=== PATIENT | male | born 1965 | race Caucasian/White ===

== ENCOUNTER 2022-05-11 12:08 | Outpatient (REF) | payer OTHER, SELFPAY ==
[2022-05-11 14:11] LABS: SARS PCR* Negative SARS-CoV-2 (Negative)
== END 2022-05-11 12:09 | disposition home or self-care (01) ==
LOC: NPINS 12:08
PROVIDERS: Visit Provider Surgery
DX: Z20.822 Contact with and (suspected) exposure to COVID-19 (principal)
CPT/HCPCS: 87635

== ENCOUNTER 2022-05-14 06:23 | Day surgery (SDC) | payer OTHER, SELFPAY ==
[2022-05-14] VITALS (13 sets, daily range): BP systolic 94–127; BP diastolic 55–81; PULSE 59–94; RESP 18–20; TEMP 36.2–37.2; O2SAT 94–97; BMI 25.8
[2022-05-14] MEDS: LACTATED RINGERS 1000 ML 1,000 ML 35 ML IV (06:30)
[2022-05-14] MEDS: LACTATED RINGERS 1000 ML 1,000 ML 100 ML IV (06:45)
[2022-05-14] MEDS: SODIUM CHLORIDE 0.9 % (FLUSH) 10 ML SYRINGE IVF (06:45)
[2022-05-14] MEDS: BUPIVACAINE 0.25% 30 ML INJECTION (07:32)
[2022-05-14] MEDS: CEFAZOLIN 2 GM INJ IVP (07:45)
--- NOTE | 2022-05-14 08:16 | SUR.OPER ---
Patient transfered from Same Day Surgery to OR 3. Patient was assisted to the OR bed. Patient was positioned per Dr. Green and BUSINESS OBJECTS. 2 warm blankets were placed on patient for warmth and comfort. Per Dr. Green order, Patient was straight cathed by sterile procedure. Glans of Penis was cleansed with Betadine swabs x3. Fay RN cathed with 50cc yellow urine output.
--- NOTE | 2022-05-14 08:49 | PM.GSPRC ---
Operative Note Date of procedure: 05/14/22 Type of Procedure: Laparoscopic inguinal hernia repair, right Procedure Description: After discussing the risks and benefits of the procedure, the patient signed informed consent.? The operative site was marked and the patient was brought to the operating room and placed on the operating table in supine position.? Care was taken to pad the patient's pressure points.?? The patient was then intubated by anesthesia.?? The operative site was then prepped and draped in the usual sterile fashion.? A time-out was then performed. A curvilinear incision was made below the umbilicus. Dissection was carried down to subcutaneous tissue until the anterior rectus fascia was encountered. This was incised off the midline. The rectus muscles were then retracted exposing the posterior fascia. A space maker port with a dissecting balloon was then introduced. The preperitoneal space was inflated under direct vision. The balloon was then removed and the preperitoneal space insufflated. A 10 mm 0 degree scope was then advanced and the area was surveyed for bleeding. Dissection began on the right side. Marcelo's ligament and the pubic bone was exposed medially. Following this dissection was carried out laterally. A direct defect was noted. The sac was dissected free from the cord structures using a combination of sharp and blunt dissection. A small vessel coming from the anterior abdominal wall was identified. A clip was applied proximal and distal and the small vessel ligated. Once the sac was completely reduced, the cord structures were dissected circumfrentially and a piece of Parietex mesh for the appropriate side was placed into the abdomen. This was positioned around the cord structures. A Tacker was used to attach the mesh medially at Marcelo's ligament. Once this was completed the preperitoneal space desufflated under direct vision. The ports were removed. The fascia from the infraumbilical port was closed with 0 Vicryl. The skin incisions were closed with absorbable subcuticular suture. Sterile dressings were then applied. The scrotum was examined to ensure that both testicles were down. Instrument sponge and needle counts were correct at the end of the case. ? The patient was then woken and transported to the recovery area in stable condition. ? The patient tolerated the procedure well. Findings: Direct hernia, right side Anesthesia: GETA Surgeon: Madina Green MD Estimated blood loss (mL): 2 Condition: stable Disposition: same day
--- NOTE | 2022-05-14 08:57 | W.ANESCHARGE ---
Anesthesia Charges Start Date/Time Anesthesia Start Date: 05/14/22 Anesthesia Start Time: 07:32 Stop Date/Time Anesthesia Stop Date: 05/14/22 Anesthesia Stop Time: 08:55 Summary Emergency: No
[2022-05-14] MEDS: fentaNYL 100 MCG/2 ML inj 50 MCG IVP ×2 (09:12→09:25)
--- NOTE | 2022-05-14 09:14 | W.ANESCHARGE ---
Anesthesia Charges Start Date/Time Anesthesia Start Date: 05/14/22 Anesthesia Start Time: 07:32 Stop Date/Time Anesthesia Stop Date: 05/14/22 Anesthesia Stop Time: 08:55 Summary Emergency: No
[2022-05-14] MEDS: OXYCODONE 5 MG TABLET PO (10:20)
== END 2022-05-14 10:35 | disposition home or self-care (01) ==
PROVIDERS: PCP Family Medicine; Visit Provider Surgery
PROC: (CPT 49650; principal; 2022-05-14 07:30)
DX: K40.90 Unilateral inguinal hernia, without obstruction or gangrene, not specified as recurrent (principal)
CPT/HCPCS: 49650; 830; 860; A9270; C1781; J0690; J1170; J2250; J2405; J2704; J3010; J3490; J7120